=== PATIENT | female | born 2000 | race Caucasian/White ===

== ENCOUNTER 2019-12-10 15:58 | Inpatient (IN) | payer BC ==
[2019-12-10] MEDS ORDERED: Carboprost Tromethamine 250 MCG/1 ML Amp IM PRN (17:28)
[2019-12-10] MEDS ORDERED: Butorphanol 1 MG/ML SDV IVPUSH PRN (17:28)
[2019-12-10] MEDS ORDERED: Sodium Chloride 0.9% 10 ML Syringe FLUSH PRN (17:28)
[2019-12-10] MEDS ORDERED: Sodium Chloride 0.9% 10 ML SDV IV PRN (17:28)
[2019-12-10] MEDS ORDERED: Tranexamic Acid 1,000 MG in Sodium Chloride 0.9% 100 ML IV PRN (17:28)
[2019-12-10] MEDS ORDERED: Water For Irrigation,Sterile 1,000 ML Container IRR PRN (17:28)
[2019-12-10] MEDS ORDERED: Methylergonovine 0.2 MG/1 ML Amp IM PRN (17:28)
[2019-12-10] MEDS ORDERED: Ampicillin 2 GM in Sodium Chloride 0.9% 100 ML IV ONE (17:28)
[2019-12-10] MEDS ORDERED: Sodium Chloride 0.9% 2.5 ML Syringe FLUSH PRN (17:28)
[2019-12-10] MEDS ORDERED: Misoprostol 200 MCG Tab PO PRN (17:28)
[2019-12-10] MEDS ORDERED: Lidocaine 1% 50 ML MDV INJECT PRN (17:28)
[2019-12-10] MEDS ORDERED: Nalbuphine 10 MG/1 ML Vial IVPUSH PRN (17:28)
[2019-12-10] MEDS ORDERED: Oxytocin/0.9 % Sodium Chloride 30 UNIT/500 ML BAG IV SCH ×2 (17:30→17:45)
[2019-12-10] MEDS ORDERED: Misoprostol 25 MCG (1/4 of 100 MCG) Tab VAG PRN (17:34)
[2019-12-10] MEDS ORDERED: Terbutaline 1 MG/ML SDV SUBCUT PRN (17:34)
[2019-12-10] MEDS: Misoprostol 25 MCG (1/4 of 100 MCG) Tab VAG PRN ×2 (18:10→22:14)
[2019-12-10] MEDS: Lactated Ringers 1,000 ML IV SCH (18:13)
[2019-12-10 18:38] LABS: BLOOD UREA NITROGEN,BUN 7 mg/dL (7.0-18.0); CARBON DIOXIDE,CO2 22.7 mmol/L (21.0-32.0); CHLORIDE,CL 105 mmol/L (98-107); GLUCOSE RANDOM 86 mg/dL (74-106); POTASSIUM,K 3.7 mmol/L (3.5-5.1); SODIUM,NA 138 mmol/L (136-145)
[2019-12-10] MEDS: Ampicillin 1 GM in Sodium Chloride 0.9% 50 ML IV SCH (22:49)
[2019-12-11] MEDS: Misoprostol 25 MCG (1/4 of 100 MCG) Tab VAG PRN (02:22)
[2019-12-11] MEDS: Ampicillin 1 GM in Sodium Chloride 0.9% 50 ML IV SCH ×3 (02:27→10:28)
[2019-12-11] MEDS: Lactated Ringers 1,000 ML IV SCH (07:50)
[2019-12-11] MEDS ORDERED: Ibuprofen 400 MG Tab PO PRN (17:02)
[2019-12-11] MEDS ORDERED: oxyCODONE 5 MG Tab PO PRN (17:02)
[2019-12-11] MEDS ORDERED: Acetaminophen 500 MG Tab PO PRN ×2 (17:02)
[2019-12-11] MEDS ORDERED: Docusate Sodium 100 MG Cap PO PRN (17:02)
[2019-12-11] MEDS ORDERED: Ibuprofen 800 MG Tab PO PRN (17:02)
[2019-12-11] MEDS ORDERED: Witch Hazel Medicated Pads 40/Jar TOP PRN (17:02)
[2019-12-11] MEDS ORDERED: Lanolin 100% Cream 7 GM Tube TOP PRN (17:02)
[2019-12-11] MEDS ORDERED: Bisacodyl 10 MG Supp RECTAL PRN (17:02)
[2019-12-11] MEDS ORDERED: Benzocaine/Menthol 20%-0.5% Spray 78 GM Cannister TOP PRN (17:02)
--- NOTE | 2019-12-11 21:52 | OR ---
SURGEON: Tyler Barlow MD DATE OF PROCEDURE: 12/11/2019 INDICATION FOR PROCEDURE: A 19-year-old, G1, P0, at 39 weeks and 1 day admitted for induction of labor for gestational hypertension. Her blood pressure is normotensive to low mild range without anti-hypertensives, and she had normal preeclampsia labs with no proteinuria. The patient received Cytotec and Pitocin, and progressed to fully dilated and began pushing with contractions. She is GBS positive and received ampicillin for GBS prophylaxis. She had category 1 tracing with early decelerations. PREOPERATIVE DIAGNOSES: 1. Thomas intrauterine at 39 weeks and 1 day. 2. Gestational hypertension. POSTOPERATIVE DIAGNOSES: 1. Thomas intrauterine at 39 weeks and 1 day. 2. Gestational hypertension. PROCEDURE PERFORMED: Normal spontaneous vaginal delivery, repair of vaginal lacerations. ANESTHESIA: Local anesthesia. FINDINGS: Viable female infant. score of 8 and 9. Weight of 7 pounds 9 ounces. A double nuchal cord was noted and reduced after delivery. ESTIMATED BLOOD LOSS: 300 mL. DESCRIPTION OF PROCEDURE: The patient pushed with contractions for approximately 30 minutes with good descent. The head delivered in occiput anterior position over intact perineum. Restituted ROT. Anterior shoulder delivered easily followed by posterior shoulder and remaining body. Double nuchal cord was noted and reduced after delivery. The baby was placed on maternal chest and evaluated by awaiting nursery staff. Baby was pink, crying, and moving all extremities after delivery. The umbilical cord was clamped and cut after 60 seconds and no longer pulsating. The cord gases were obtained. The placenta was removed with gentle traction on the umbilical cord. The perineum was examined, and she was noted to have a right periurethral laceration and a left vaginal laceration. 20 mL of 1% lidocaine was used for local anesthesia. The repair was completed in the usual fashion using 3-0 Vicryl. Hemostasis was confirmed after. The uterus was firm and at the umbilicus on fundal massage. The bleeding was minimal. She tolerated the procedure well, was given care instructions. ISABELLA / DANNIELLE /[id number] BIANCA
--- NOTE | 2019-12-12 08:32 | PCM.PNPP ---
- General Info Date of Service: 12/12/19 Functional Status: Reports: Pain Controlled, Tolerating Diet, Ambulating, Urinating - Review of Systems General: Reports: No Symptoms HEENT: Reports: No Symptoms Pulmonary: Reports: No Symptoms Cardiovascular: Reports: No Symptoms Gastrointestinal: Reports: No Symptoms Genitourinary: Reports: No Symptoms Musculoskeletal: Reports: No Symptoms Skin: Reports: No Symptoms Neurological: Reports: No Symptoms Psychiatric: Reports: No Symptoms - Patient Data Vital Signs - Most Recent: Last Vital Signs Temp 36.2 C 12/12/19 07:17 Pulse 103 H 12/12/19 04:54 Resp 15 12/12/19 07:17 BP 107/69 12/12/19 07:17 Pulse Ox 96 12/12/19 07:17 Weight - Most Recent: 96.162 kg I&O - Last 24 Hours: Intake & Output 12/11/19 12/12/19 12/12/19 22:59 06:59 14:59 Intake Total 1100 Balance 1100 Lab Results - Last 24 Hours: Laboratory Results - last 24 hr 12/11/19 12/11/19 12/11/19 Range/Units 15:50 15:50 15:58 Hgb (12.0-16.0) g/dL Hct (36.0-46.0) % Cord ABG pH 7.193 (7.18-7.38) Cord ABG Base Excess -10 (-10--2) Cord VBG pH 7.256 (7.25-7.45) Cord VBG Base Excess -8 (-10--2) Rhogam Indicated NO, MOM+BABY RH NEG 12/12/19 Range/Units 05:20 Hgb 11.6 L (12.0-16.0) g/dL Hct 34.1 L (36.0-46.0) % Cord ABG pH (7.18-7.38) Cord ABG Base Excess (-10--2) Cord VBG pH (7.25-7.45) Cord VBG Base Excess (-10--2) Rhogam Indicated Med Orders - Current: Current Medications Acetaminophen (Tylenol Extra Strength) 500 mg PO Q4H PRN PRN Reason: Pain Acetaminophen (Tylenol Extra Strength) 1,000 mg PO Q4H PRN PRN Reason: Pain Last Admin: 12/11/19 17:47 Dose: 1,000 mg Benzocaine/Menthol (Dermoplast Pain Relief 20%-0.5% [place]) 78 gm TOP ASDIRECTED PRN PRN Reason: Perineal Comfort Measure Last Admin: 12/11/19 17:46 Dose: 1 spray Bisacodyl (Dulcolax) 10 mg RECTAL ONETIME PRN PRN Reason: Constipation Butorphanol Tartrate (Stadol) 1 mg IVPUSH Q1H PRN PRN Reason: Pain Carboprost Tromethamine (Hemabate Ds) 250 mcg IM ASDIRECTED PRN PRN Reason: Post Hemorrhage Docusate Sodium (Colace) 100 mg PO BID PRN PRN Reason: Constipation Last Admin: 12/11/19 17:47 Dose: 100 mg Emollient Ointment (Lansinoh Hpa) 0 gm TOP ASDIRECTED PRN PRN Reason: Sore Nipples Last Admin: 12/11/19 17:46 Dose: 1 pack Lactated Ringer's (Ringers, Lactated) 1,000 mls @ 150 mls/hr IV ASDIRECTED LEIDY Last Admin: 12/11/19 07:50 Dose: 150 mls/hr Oxytocin/Sodium Chloride (Oxytocin 30 Unit/500 Ml-Ns) 30 unit in 500 mls @ 500 mls/hr IV TITRATE LEIDY Tranexamic Acid 1,000 mg/ (Sodium Chloride) 110 mls @ 660 mls/hr IV ONETIME PRN PRN Reason: Bleeding Oxytocin/Sodium Chloride (Oxytocin 30 Unit/500 Ml-Ns) 30 unit in 500 mls @ 2 mls/hr IV TITRATE LEIDY; Protocol Last Titration: 12/11/19 16:00 Dose: 500 munits/min, 500 mls/hr Ibuprofen (Motrin) 400 mg PO Q4H PRN PRN Reason: Pain Ibuprofen (Motrin) 800 mg PO Q6H PRN PRN Reason: Pain Last Admin: 12/11/19 23:16 Dose: 800 mg Lidocaine HCl (Xylocaine 1%) 50 ml INJECT ONETIME PRN PRN Reason: Laceration repair Last Admin: 12/11/19 16:09 Dose: 50 ml Methylergonovine Maleate (Methergine) 0.2 mg IM ASDIRECTED PRN PRN Reason: Post Hemorrhage Misoprostol (Cytotec) 200 mcg PO ONETIME PRN PRN Reason: Post Hemorrhage Misoprostol (Cytotec) 25 mcg VAG ONETIME PRN PRN Reason: Cervical Ripening Misoprostol (Cytotec) 25 mcg VAG Q4H PRN PRN Reason: Cervical Ripening Last Admin: 12/11/19 02:22 Dose: 25 mcg Nalbuphine HCl (Nubain) 10 mg IVPUSH Q1H PRN PRN Reason: Pain (severe 7-10) Oxycodone HCl (Oxycodone) 5 mg PO Q2H PRN PRN Reason: Pain Sodium Chloride (Saline Flush) 10 ml FLUSH ASDIRECTED PRN PRN Reason: Keep Vein Open Sodium Chloride (Saline Flush) 2.5 ml FLUSH ASDIRECTED PRN PRN Reason: Keep Vein Open Sodium Chloride (Normal Saline) 10 ml IV ASDIRECTED PRN PRN Reason: IV Use Sterile Water (Sterile Water For Irrigation) 1,000 ml IRR ASDIRECTED PRN PRN Reason: delivery Terbutaline Sulfate (Brethine) 0.25 mg SUBCUT ASDIRECTED PRN PRN Reason: Tacysystole Witch Padmini (Tucks) 1 pad TOP ASDIRECTED PRN PRN Reason: comfort care Last Admin: 12/11/19 17:46 Dose: 1 pack Discontinued Medications Ampicillin Sodium 2 gm/ Sodium (Chloride) 100 mls @ 200 mls/hr IV ONETIME ONE Stop: 12/10/19 17:57 Last Admin: 12/10/19 18:15 Dose: 200 mls/hr Ampicillin Sodium 1 gm/ Sodium (Chloride) 50 mls @ 100 mls/hr IV Q4H [facility] Last Admin: 12/11/19 10:28 Dose: 100 mls/hr - Interaction Infant Disposition, : at Bedside Feeding: Breastfed Infant; Nursed Well Support Person: - Recovery Exam Fundal Tone: Firm Fundal Level: 1 Fingerbreadths Below Umbilicus Fundal Placement: Midline Lochia Amount: Scant, Small Lochia Color: Rubra/Red Other Perinuem Description: 1st degree laceration with repair. Bladder Status: Voiding - Exam General: Alert, Oriented Neck: Supple Lungs: Normal Respiratory Effort Cardiovascular: Regular Rate, Regular Rhythm GI/Abdominal Exam: Soft, Non-Tender Extremities: Non-Tender Skin: Warm, Dry, Intact Neurological: No New Focal Deficit Psy/Mental Status: Alert, Normal Affect, Normal Mood - Problem List & Annotations (1) Vaginal delivery SNOMED Code(s): 079724413 Code(s): O80 - ENCOUNTER FOR FULL-TERM UNCOMPLICATED DELIVERY Status: Acute Current Visit: Yes - Problem List Review Problem List Initiated/Reviewed/Updated: Yes - My Orders Last 24 Hours: My Active Orders 12/12/19 08:30 Ready for Discharge [RC] PER UNIT ROUTINE - Assessment Assessment:: 19yo P1 s/p , PPD#1 - Plan Plan:: 1. Continue routine care. 2. GHTN - blood pressures normal, denies symptoms. 3. Dispo - desires discharge home today, reviewed discharge instructions.
== END 2019-12-12 17:45 | disposition home or self-care (01) | DRG 560 ==
LOC: MW.OB 15:58 → OBSVTOIN 12-11 15:58 → MW.OB 12-11 19:10
PROVIDERS: ADMIT Obstetrics & Gynecology; ATTEND Obstetrics & Gynecology
PROC: 10E0XZZ Delivery of Products of Conception, External Approach (ICD-10-PCS; principal; 2019-12-11)
PROC: 3E033VJ Introduction of Other Hormone into Peripheral Vein, Percutaneous Approach (ICD-10-PCS; 2019-12-11)
PROC: 0UQMXZZ Repair Vulva, External Approach (ICD-10-PCS; 2019-12-11)
PROC: 0UQGXZZ Repair Vagina, External Approach (ICD-10-PCS; 2019-12-11)
DX: O13.4 Gestational [pregnancy-induced] hypertension without significant proteinuria, complicating childbirth (principal); O99.824 Streptococcus B carrier state complicating childbirth; O69.81X0 Labor and delivery complicated by cord around neck, without compression, not applicable or unspecified; Z37.0 Single live birth; Z3A.39 39 weeks gestation of pregnancy; O71.82 Other specified trauma to perineum and vulva; O70.0 First degree perineal laceration during delivery
CPT/HCPCS: 36415; 59020; 59025; 59409; 80053; 82570; 82803; 84156; 84550; 85014; 85018; 85027; 86592; 86593; 86850; 86900; 86901; A9270-GY; J0290; J2001; J2590; J7050; J7120